=== PATIENT | female | born 1950 | race Caucasian/White ===

== ENCOUNTER 2017-12-08 18:25 | Emergency (ER) | payer MEDICARE ==
--- NOTE | 2017-12-08 19:10 | ED ---
Dizziness - HPI Summary HPI Summary: This is julian James documenting for attending Ashok Davis MD. Patient is a 67 y/o F w/ c/o dizziness. She reports that she went to see a movie today at noon and went to eat once the movie had finished. Afterwards, at around 1400 today, she began to feel light-headed, dizzy, was diaphoretic, and had a feeling of being near LOC. The patient experienced diarrhea but denies nausea, vomiting, palpitations, and chest pain at the time. She reports the episode lasted around 30 minutes. She went home and then came to the ED. She currently reports feeling foggy/light-headed. The patient reports a similar episode last week. On triage, pain is denied and nothing is noted to aggravate/ alleviate Sx. Allergies and home medications are reviewed. - History Of Current Complaint Chief Complaint: EDSyncope Stated Complaint: LIGHT HEADED/WEAKNESS/DIARRHEA Time Seen by Provider: 12/08/17 18:57 Hx Obtained From: Patient Onset/Duration: Resolved Timing: Minutes - reported to last 30 minutes Severity Currently: None Character: Lightheaded, Dizzy Aggravating Factor(s): Nothing Alleviating Factor(s): Nothing Associated Signs And Symptoms: Positive: Diarrhea, Diaphoresis, Other: - POSITIVE: feelings of near LOC NEGATIVE: palpitations. Negative: Nausea, Vomiting, Chest Pain - Allergies/Home Medications Allergies/Adverse Reactions: Allergies Allergy/AdvReac Type Severity Reaction Status Date / Time Sulfa (Sulfonamide Allergy Hives/Diff. Verified 12/08/17 18:35 Antibiotics) Breathing/I tching Home Medications: Home Medications Aspirin EC TAB* [Ecotrin EC Low Dose 81 MG*] 81 mg PO DAILY 12/08/17 [History Confirmed 12/08/17] Cholecalciferol TAB* [Vitamin D TAB*] 5,000 units PO DAILY 12/08/17 [History Confirmed 12/08/17] Levothyroxine TAB* [Synthroid 100 MCG TAB*] 100 mcg PO DAILY 12/08/17 [History Confirmed 12/08/17] Lisinopril/HCTZ 1012.5(NF) [Zestoretic 10/12.5(NF)] 1 tab PO DAILY 12/08/17 [ History Confirmed 12/08/17] Metformin ER (NF) 500 mg PO DAILY 12/08/17 [History Confirmed 12/08/17] Mometasone Furoate [Elocon] 0.1 % TOPICAL BID PRN 12/08/17 [History Confirmed ] Shattuck-3/Dha/Epa/Fish Oil [Shattuck-3 Fish Oil 1,200 mg Sfgl] 1,200 mg PO TID [History Confirmed 12/08/17] Plant Stanol Antonella [Cholest Off] 900 mg PO TID 12/08/17 [History Confirmed 12/08] PMH/Surg Hx/FS Hx/Imm Hx Endocrine/Hematology History: Reports: Hx Diabetes Cardiovascular History: Reports: Hx Hypertension Infectious Disease History: No Infectious Disease History: Denies: Traveled Outside the [place] in Last 30 Days - Family History Known Family History: Negative: Hypertension, Diabetes Review of Systems Positive: Skin Diaphoresis Negative: Palpitations, Chest Pain Positive: Diarrhea. Negative: Vomiting, Nausea Neurological: Other - dizziness, light-headedness, feelings of near LOC All Other Systems Reviewed And Are Negative: Yes Physical Exam - Summary Physical Exam Summary: VITAL SIGNS: Reviewed. GENERAL: Patient is a well-developed and nourished female who is lying comfortable in the stretcher. Patient is not in any acute respiratory distress. HEAD AND FACE: No signs of trauma. No ecchymosis, hematomas or skull depressions. No sinus tenderness. EYES: PERRLA, EOMI x 2, No injected conjunctiva, no nystagmus. EARS: Hearing grossly intact. Ear canals and tympanic membranes are within normal limits. MOUTH: Oropharynx within normal limits. NECK: Supple, trachea is midline, no adenopathy, no JVD, no carotid bruit, no c- spine tenderness, neck with full ROM. CHEST: Symmetric, no tenderness at palpation LUNGS: Clear to auscultation bilaterally. No wheezing or crackles. CVS: Regular rate and rhythm, S1 and S2 present, no gallops appreciated. Systolic ejection murmur 2/6 is noted. ABDOMEN: Soft, non-tender. No signs of distention. No rebound no guarding, and no masses palpated. Bowel sounds are normal. EXTREMITIES: FROM in all major joints, no edema, no cyanosis or clubbing. NEURO: Alert and oriented x 3. No acute neurological deficits. Speech is normal and follows commands. SKIN: Dry and warm Triage Information Reviewed: Yes Vital Signs On Initial Exam: Initial Vitals Temp Pulse Resp BP Pulse Ox 97.6 F 78 18 150/62 100 12/08/17 18:29 12/08/17 18:29 12/08/17 18:29 12/08/17 18:29 12/08/17 18:29 Vital Signs Reviewed: Yes Diagnostics - Vital Signs Vital Signs Temp Pulse Resp BP Pulse Ox 12/08/17 18:29 97.6 F 78 18 150/62 100 - Laboratory Result Diagrams: 12/08/17 19:05 12/08/17 19:05 Lab Statement: Any lab studies that have been ordered have been reviewed, and results considered in the medical decision making process. - Radiology CXR Xray Interpretation: No Acute Changes Radiology Interpretation Completed By: Radiologist - No evidence for acute disease. This report was reviewed by ED physician. - CT CT Brain CT Interpretation: No Acute Changes CT Interpretation Completed By: Radiologist - No evidence for acute intracranial abnormality. This report was reviewed by ED physician. - EKG 1856 Cardiac Rate: NL - Rate of 73 BPM EKG Rhythm: Sinus Rhythm EKG Interpretation: LBBB Re-Evaluation - Re-Evaluation First Eval Re-Evaluation Time: 21:20 Change: Improved Comment: Patient reports feeling better, no complaints, dizziness is gone. Patient will be ambulated around the department, and, if no complaints, will discharge to home. Dizzy Course/Dx - Course Assessment/Plan: This patient is a 67-year-old female who presents to the emergency department with a chief complaint having dizziness. The patient reports that occasionally she has room is spinning on patient and she has weakness of the legs. Patient denies any headache, blurred vision, denies any chest pain shortness of breath or palpitations.. No LOC. Test results shows however was a count of 15.4, creatinine 1.57, glucose of 218, glucose of 218 lactic acid 2.3 calcium 10.4. Urinalysis is contaminated therefore we will send urine for cultures. Head CT shows no acute interconnected pathology. Chest x-ray impression negative for acute cardiopulmonary pathology. EKG shows a nausea and rhythm with no ST elevations. In the ED course the patient was given IV fluids, the patient was given Antivert on her symptoms resolved. At this point ambulated the patient around the emergency department if she has no symptoms. Therefore the patient will be discharged home with follow-up with primary care physician. I discussed all the findings and test results with the patient. Patient was instructed to return to the emergency room immediately if any of the symptoms return or worsens. Plan of care was discussed with the patient and understands and agrees. All questions were answered at patient satisfaction. There were no further complaints or concerns. Lung exam before discharge: CTA B/L. Good air exchange. No wheezing or crackles heard. CVS: S1 and S2 present. No murmurs appreciated. Patient is alert and oriented x 3. Patient is hemodynamically stable. Patient will be discharged home with follow up PCP in the next 2-3 days - Diagnoses Provider Diagnoses: Vertigo, Dizziness Discharge - Sign-Out/Discharge Documenting (check all that apply): Patient Departure - discharge - Discharge Plan Condition: Stable Disposition: HOME Prescriptions: Meclizine TAB* [Antivert 12.5 TAB*] 25 mg PO TID PRN #30 tab PRN Reason: Vertigo Patient Education Materials: Vertigo (ED), Dizziness (ED) Referrals: Salma Martinez MD [Primary Care Provider] - 3 Days Additional Instructions: Return to ED for any new or worsening symptoms. - Billing Disposition and Condition Condition: STABLE Disposition: Home
[2017-12-08 19:23] LABS: ABS Basophils 0.1 10^3/ul (0-0.2); ABS Eosinophils 0 10^3/ul (0-0.6); ABS Lymphocytes 1.1 10^3/ul (1.0-4.8); ABS Monocytes 0.4 10^3/ul (0-0.8); ABS Neutrophils 13.8 10^3/ul (1.5-7.7); ABS Nucleated RBC 0 10^3/ul; Eosinophil % 0.2 % (0-6); Hematocrit 39 % (35-47); Hemoglobin 12.8 g/dl (12.0-16.0); Lymphocyte % 7.2 % (25-47); Mean Corpuscular HGB Conc 33 g/dl (31-36); Mean Corpuscular Hemoglobin 30 pg (27-31); Mean Corpuscular Volume 89 fL (80-97); Mean Platelet Volume 9.9 um3 (7.4-10.4); Nucleated Red Blood Cells % 0; Platelet Count 222 10^3/ul (150-450); Red Blood Count 4.32 10^6/ul (4.00-5.40); Red Cell Distribution Width 13 % (10.5-15); White Blood Count 15.4 10^3/ul (3.5-10.8)
[2017-12-08 19:34] LABS: EGFR Non-African American 32.7 (>60)
--- NOTE | 2017-12-08 19:39 | RAD ---
INDICATION: Syncope. COMPARISON: Comparison is made with prior study from November 30, 2004. TECHNIQUE: A portable view of the chest was obtained. FINDINGS: Cardiac and mediastinal contours appear to be within normal limits. The lungs are clear. No pleural effusion is seen. IMPRESSION: NO EVIDENCE FOR ACUTE DISEASE.
--- NOTE | 2017-12-08 20:00 | RAD ---
INDICATION: Syncope. COMPARISON: There are no prior studies available for comparison. TECHNIQUE: Contiguous axial sections of the brain were obtained from the skull base to the vertex without contrast. FINDINGS: The ventricles, cisterns and sulci are within normal limits. No significant focal abnormality or mass effect is seen. There is no evidence for hemorrhage. No significant focal osseous abnormality is seen. The visualized portion of the paranasal sinuses and mastoid air cells appear clear. IMPRESSION: NO EVIDENCE FOR ACUTE INTRACRANIAL ABNORMALITY.
[2017-12-08] MEDS ORDERED: NS 0.9% 1000 ML* 1,000 ML IV ONE (20:09)
[2017-12-08] MEDS ORDERED: Meclizine TAB* 12.5 MG PO ONE (21:00)
[2017-12-08 21:01] LABS: Urine Appearance Cloudy; Urine Blood 2+ (Negative); Urine Color Yellow; Urine Ketones Negative (Negative); Urine Protein 1+(30 mg/dL) (Negative); Urine Red Blood Cell 1+(3-5/hpf) (Absent); Urine Specific Gravity 1.009 (1.010-1.030); Urine Urobilinogen Negative (Negative); Urine White Blood Cell 1+(6-10/hpf) (Absent)
[2017-12-08 21:43] VITALS: BP 149/75
--- NOTE | 2017-12-10 06:59 | PN ---
Progress Note - Progress Note Date of Service: 12/10/17 Note: Patient's urine culture grew Escherichia coli 25-50,000. Nonsignificant cultures will not treat at this time.
== END 2017-12-08 21:43 | disposition home or self-care (01) ==
LOC: ED 18:25
DX: R42 Dizziness and giddiness (principal); R19.7 Diarrhea, unspecified
CPT/HCPCS: 36415; 70450; 71045; 80053; 80307; 80320; 81003; 81015; 82140; 83605; 83735; 83880; 84443; 84484; 85025; 87077; 87086; 87186; 93005; 96360; 99283; A9270-GY; G0480